=== PATIENT | male | born 1995 | race Two or more races ===

== ENCOUNTER 2024-06-22 12:19 | Emergency (ER) | payer SELFPAY ==
[~2024-06-22] VITALS: Ht 167.6 cm; Wt 73.5 kg
[2024-06-22 12:53] VITALS: BP 117/79; PULSE 79; RESP 17; TEMP 98; O2SAT 97
[2024-06-22] MEDS ORDERED: LIDO5DIS21 TOP (14:16)
[2024-06-22] MEDS ORDERED: IBUP-1455 PO (14:16)
== END 2024-06-22 14:21 | disposition home or self-care (01) ==
LOC: ER 12:19
DX: R07.81 Pleurodynia (principal); Z79.899 Other long term (current) drug therapy
CPT/HCPCS: 71101; 93005